=== PATIENT | female | born 1975 | race African-American/Black ===

== ENCOUNTER 2021-04-10 19:16 | Inpatient (IN) | payer OTHER ==
[~2021-04-10] VITALS: Ht 162.6 cm; Wt 76.1 kg
[~2021-04-10 19:16] MED LIST: HYDROCHLOROTH12.5 M1 PO; IBUPROFEN 400400 M2 PO; NORVASC10 MG PO
[2021-04-10 19:24] VITALS: BP 151/90
[2021-04-10] MEDS ORDERED: NOHOMEMEDICATIONS (19:34)
[2021-04-10 20:25] LABS: HEMATOCRIT 23.9 % (37.0-47.0); MCH 19.7 pg (26.0-34.0); MCHC 29.3 g/dL (28.0-37.0); MCV 67.4 fL (80.0-100.0); PLATELET COUNT 274 thou/uL (150-400); RBC 3.54 mil/uL (4.20-5.00); RDW 19.4 % (10.5-14.5); WBC 3.7 thou/uL (4.0-11.0)
[2021-04-10 20:26] LABS: URINE BILIRUBIN NEGATIVE (Negative); URINE BLOOD 2+ (Negative); URINE CLARITY CLEAR; URINE COLOR YELLOW; URINE GLUCOSE-RANDOM* NEGATIVE (Negative); URINE KETONES NEGATIVE (Negative); URINE LEUKOCYTES-REFLEX NEGATIVE (Negative); URINE NITRITE-REFLEX NEGATIVE (Negative); URINE PROTEIN (DIPSTICK) NEGATIVE (Negative); URINE SPECIFIC GRAVITY >= 1.030 (1.005-1.035); URINE UROBILINOGEN 0.2 E.U./dl (0.2-1.0)
[2021-04-10 20:29] LABS: CALCIUM 8.1 mg/dL (8.5-10.1); CREATININE 0.7 mg/dL (0.6-1.0); POTASSIUM 3.7 mmol/L (3.5-5.1)
[2021-04-10 20:34] LABS: SQUAMOUS 4-10 Moderate /LPF (0-3)
[2021-04-10 20:35] LABS: BACTERIA-REFLEX 1-9 Few /HPF (None Seen); CASTS None Seen /LPF (None Seen); CRYSTALS None Seen /LPF (None Seen); URINE WBC-REFLEX 0-5 Rare /HPF (0-5)
[2021-04-10 20:44] LABS: ALBUMIN 3.4 g/dL (3.4-5.0); TOTAL BILIRUBIN 0.3 mg/dL (0.2-1.0); TOTAL PROTEIN 7.2 g/dL (6.4-8.2)
[2021-04-10 20:52] LABS: ABSOLUTE NEUTROPHILS 1.8 thou/uL (1.4-8.2); ANISOCYTOSIS 2+; HYPOCHROMASIA 3+; MICROCYTES 2+; PLATELET ESTIMATE NORMAL; POIKILOCYTOSIS 2+
[2021-04-10 20:53] LABS: LARGE PLATELETS FEW; POLYCHROMASIA 1+; SCHISTOCYTES 1+
[2021-04-10 21:57] LABS: APTT 26.5 Seconds (24.5-32.8); INR 0.96; PROTIME 10.5 Seconds (10.5-12.1)
[2021-04-11 00:57] VITALS: BP 149/73
[2021-04-11 03:48] VITALS: BP 115/61
[2021-04-11 06:34] LABS: MCV 67.6 fL (80.0-100.0)
[2021-04-11 06:37] LABS: HEMATOCRIT 20.9 % (37.0-47.0); MCH 19.6 pg (26.0-34.0); RBC 3.1 mil/uL (4.20-5.00)
[2021-04-11 06:43] LABS: CALCIUM 7.6 mg/dL (8.5-10.1); CREATININE 0.6 mg/dL (0.6-1.0); POTASSIUM 3.6 mmol/L (3.5-5.1)
[2021-04-11 06:50] LABS: HEMOGLOBIN 6.1 gm/dL (12.0-15.0)
[2021-04-11 15:36] VITALS: BP 136/67
[2021-04-11 17:16] LABS: % SATURATION 5 % (20-39); IRON 18 ug/dL (50-170); TIBC 342 ug/dL (250-450)
[2021-04-11 17:43] LABS: FOLIC ACID 10.5 ng/mL (8.6-58.9)
[2021-04-11 17:58] VITALS: BP 136/67; BP 140/87
[2021-04-11 18:18] VITALS: BP 136/67
[2021-04-11 22:00] VITALS: BP 136/81
[2021-04-11 22:18] LABS: ABSOLUTE NEUTROPHILS 4.5 thou/uL (1.4-8.2); BASOPHILS 0.9 % (0.0-2.0); EOSINOPHILS 2.1 % (0.0-3.0); HEMATOCRIT 27.5 % (37.0-47.0); LYMPHOCYTES 14.2 % (24.0-44.0); MCH 21.5 pg (26.0-34.0); MCHC 30.3 g/dL (28.0-37.0); MCV 71.1 fL (80.0-100.0); MONOCYTES 3.6 % (1.0-8.0); PLATELET COUNT 248 thou/uL (150-400); POLYS 79.2 % (36.0-66.0); RBC 3.87 mil/uL (4.20-5.00); RDW 20.2 % (10.5-14.5); WBC 5.7 thou/uL (4.0-11.0)
[2021-04-11 22:19] LABS: HEMOGLOBIN 8.3 gm/dL (12.0-15.0)
--- NOTE | 2021-04-12 02:04 | NUR ---
PT CAME IN FOR HEAVY BLEEDING OF PERIODS. RECEIVED 2 UNITS OF PACKED RED BLOOD CELLS DOWN IN THE EMERGENCY ROOM. RECHECK HEMOGLOBIN AND IMPROVED. LUNGS ARE CLEAR ON ROOM AIR. RESTING.ADMISSION DONE AND CONSENTS SIGNED AND PLACED IN CHART. ABDOMEN IS SOFT ROUND. CALL LIGHT WITHIN REACH IF NEEDS ASSISTANCE.
[2021-04-12 04:00] VITALS: BP 129/81
[2021-04-12 07:14] VITALS: BP 129/86
--- NOTE | 2021-04-12 09:08 | NUR ---
PATIENT IS PRIVATE PAY. [facility] SAW PT. SHE IS OVER ASSET. CM WILL FOLLOW PT AND RECOMMEND TOI SERVICES.
--- NOTE | 2021-04-12 09:16 | NUR ---
Assumed care of pt this AM. Pt is A&O x4, on RA, SR on the monitor. Pt c/o headache this AM. Pt also states shes developed a new cough. Pt wondering if she needs to be covid tested again. Provider notified & covid PCR sent. Plan to monitor hgb today. Give PRN pain medication as needed. Fall education provided.
[2021-04-12 13:03] LABS: HEMATOCRIT 27.5 % (37.0-47.0); HEMOGLOBIN 8.4 gm/dL (12.0-15.0); MCH 21.8 pg (26.0-34.0); MCHC 30.8 g/dL (28.0-37.0); RBC 3.87 mil/uL (4.20-5.00); RDW 20.8 % (10.5-14.5); WBC 4.8 thou/uL (4.0-11.0)
[2021-04-12 14:02] VITALS: BP 127/86
--- NOTE | 2021-04-12 14:30 | NUR ---
met with patient. [facility] met with patient and reports patient over income. Patient working as [employer]. Gave safety net resources and [employer] resource. A treatment plan with TXA likely not avail. [facility] outpatient pharmacy reports 30 tablets 650ml is $3000. Updated Dr Grimaldo office and Dr Joy.
--- NOTE | 2021-04-12 17:44 | NUR ---
PT TRANSFER FROM APPROX 1700. PT A/O X 4. PT COMPLAINS OF HEADACHE, PREVIOUS RN HAD JUST GIVEN MEDICATION, WILL CONTINUE TO MONITOR PAIN. PT ON RA CURRENTLY. BREATH SOUNDS ARE CLEAR. MS TELE STATUS. BEDSIDE TABLE AND CALL LIGHT WITHIN REACH. WILL CONTINUE TO MONITOR.
[2021-04-12 20:09] VITALS: BP 147/92
--- NOTE | 2021-04-13 03:22 | NUR ---
ASSUMED PT CARE AROUND 1900. PT INDEPENDENT IN ROOM, REPORTS NO PAIN, AND MILD BLEEDING. PT HAS NO CONCERNS AT THIS TIME BUT ENDORSES A MILD, NON-PRODUCTIVE COUGH. NO ACUTE EVENTS, VSS. WILL CONTINUE TO MONITOR & FOLLOW PLAN OF CARE PT IS WILLING
[2021-04-13 04:37] VITALS: BP 125/82
[2021-04-13 06:38] LABS: HEMATOCRIT 28.2 % (37.0-47.0); HEMOGLOBIN 8.8 gm/dL (12.0-15.0); MCHC 31.3 g/dL (28.0-37.0); MCV 70.3 fL (80.0-100.0); RBC 4.01 mil/uL (4.20-5.00); RDW 20.7 % (10.5-14.5); WBC 3.1 thou/uL (4.0-11.0)
[2021-04-13 07:15] LABS: CALCIUM 8.1 mg/dL (8.5-10.1); CREATININE 0.7 mg/dL (0.6-1.0); MAGNESIUM 1.9 mg/dL (1.8-2.4); POTASSIUM 3.5 mmol/L (3.5-5.1)
[2021-04-13 07:55] VITALS: BP 154/101
[2021-04-13 11:10] VITALS: BP 154/101
--- NOTE | 2021-04-13 11:29 | NUR ---
DISCHARGE NOTE: SW reviewed chart and spoke with nursing and attending physician. Pt was transferred to from yesterday after having positive COVID PCR test. Pt placed in Enhanced Isolation. Pt has received the Pfizer COVID vaccination. Pt is afebrile and not requiring O2. Pt is medically stable for discharge home today. SW spoke with pt via phone to discuss discharge plan. Pt is agreeable with discharge and states her son will be able to provide transportation home. Pt states that Dr. Hannon' office has already called in the prescription for TXA to a pharmacy. Pt has been provided with a prescription discount card. Pt denies having any other discharge needs. Pt was screened by [facility] and does not meet the criteria for [place]-Med[place]. Pt has been provided with info for safety net clinics to establish primary care. No additional SW needs identified at this time. SW is available to assist should needs arise.
[2021-04-13 15:30] VITALS: BP 125/69
[2021-04-13] MEDS ORDERED: IRON325 PO (16:53)
[2021-04-13] MEDS ORDERED: LYSTEDA650 MG PO (16:55)
[2021-04-13 17:16] VITALS: BP 127/86
--- NOTE | 2021-04-13 17:33 | NUR ---
DISCHARGE NOTE: GIVEN DISCHARGE PAPERWORK AND SIGNED VERBAL CONSENT DUE TO COVID. SCRIPTS GIVEN, WENT OVER NEW MEDICATION PAPERWORK AND UPCOMING APPOINTMENTS. DC IV AND TELEMETRY. ALL BELONGINGS WITH PT. WAITING FOR RIDE HOME WITH SON. WILL CONTINUE TO MONITOR.
== END 2021-04-13 18:15 | disposition home or self-care (01) | DRG 760 ==
LOC: ER 19:16 → 2N 23:21 → EROBS 23:21 → 2N 04-11 20:45 → 3W 04-12 17:06
PROVIDERS: Nurse Practitioner; Nurse Practitioner Family; ADMIT Internal Medicine; ATTEND Internal Medicine
PROC: 30233N1 Transfusion of Nonautologous Red Blood Cells into Peripheral Vein, Percutaneous Approach (ICD-10-PCS; principal; 2021-04-11)
DX: N93.9 Abnormal uterine and vaginal bleeding, unspecified (principal); U07.1 COVID-19; D62 Acute posthemorrhagic anemia; I10 Essential (primary) hypertension
CPT/HCPCS: 10081; 10879; 20056